=== PATIENT | female | born 1955 | race Caucasian/White ===

== ENCOUNTER 2020-06-26 08:21 | Outpatient (RCR) | payer MEDICARE, SELFPAY ==
[2020-06-26] MEDS: COVID-19 VACC, MRNA(PFIZER)/PF 30 MCG/0.3 ML SYRINGE IM (14:36)
[2020-07-17] MEDS: COVID-19 VACC, MRNA(PFIZER)/PF 30 MCG/0.3 ML SYRINGE IM (14:27)
== END 2020-09-23 23:59 ==
LOC: IMMUN 08:21
PROVIDERS: PCP Family Medicine; Referring Provider Family Medicine; Visit Provider Family Medicine
DX: Z23 Encounter for immunization (principal)
CPT/HCPCS: 0001A; 0002A; 91300

== ENCOUNTER → 2020-11-05 15:48 | Outpatient (CLI) | payer MEDICARE, SELFPAY ==
[2020-11-05 17:34] LABS: Anion Gap 8 (5-15); BUN 14 mg/dL (7-18); BUN/Creat Ratio 12.4 RATIO (10-20); Calcium,Total 9.2 mg/dL (8.5-10.1); Chloride 107 mmol/L (98-107); Creatinine, Serum 1.13 mg/dL (0.55-1.02); EST Glomerular Filtration Rate 51 mL/min (>60); Est Glom Filt Rate - Afr Amer 62 mL/min (>60); Glucose 107 mg/dL (74-106); Potassium 4.4 mmol/L (3.5-5.1); Sodium Level 138 mmol/L (136-145)
== END ==
PROVIDERS: PCP Family Medicine; Referring Provider Nurse Practitioner Family; Visit Provider Nurse Practitioner Family
DX: N18.2 Chronic kidney disease, stage 2 (mild) (principal); Z79.899 Other long term (current) drug therapy
CPT/HCPCS: 36415; 80048

== ENCOUNTER → 2021-02-10 14:12 | Outpatient (CLI) | payer MEDICARE, SELFPAY ==
[2021-02-10 16:03] LABS: Anion Gap 7 (5-15); BUN 17 mg/dL (7-18); BUN/Creat Ratio 14.8 RATIO (10-20); Calcium,Total 9.3 mg/dL (8.5-10.1); Chloride 104 mmol/L (98-107); Creatinine, Serum 1.15 mg/dL (0.55-1.02); EST Glomerular Filtration Rate 50 mL/min (>60); Est Glom Filt Rate - Afr Amer 61 mL/min (>60); Glucose 122 mg/dL (74-106); Potassium 4.1 mmol/L (3.5-5.1); Sodium Level 138 mmol/L (136-145)
== END ==
PROVIDERS: PCP Family Medicine; Referring Provider Nurse Practitioner Family; Visit Provider Nurse Practitioner Family
DX: E87.5 Hyperkalemia (principal); N18.2 Chronic kidney disease, stage 2 (mild); Z79.899 Other long term (current) drug therapy
CPT/HCPCS: 36415; 80048

== ENCOUNTER → 2021-03-16 14:33 | Outpatient (CLI) | payer MEDICARE, SELFPAY ==
[2021-03-16 15:49] LABS: Anion Gap 9 (5-15); BUN 10 mg/dL (7-18); Calcium,Total 9.2 mg/dL (8.5-10.1); Chloride 107 mmol/L (98-107); EST Glomerular Filtration Rate 59 mL/min (>60); Est Glom Filt Rate - Afr Amer 72 mL/min (>60); Glucose 106 mg/dL (74-106); Potassium 4.2 mmol/L (3.5-5.1); Sodium Level 139 mmol/L (136-145)
== END ==
PROVIDERS: PCP Family Medicine; Referring Provider Nurse Practitioner Family; Visit Provider Nurse Practitioner Family
DX: N18.2 Chronic kidney disease, stage 2 (mild) (principal); E87.5 Hyperkalemia; Z79.899 Other long term (current) drug therapy
CPT/HCPCS: 36415; 80048

== ENCOUNTER 2021-05-28 08:57 | Day surgery (SDC) | payer MEDICARE, SELFPAY ==
--- NOTE | 2021-05-28 | EMB_PTH ---
PATIENT: DELANEY STRICKLAND LOC: [facility] – [place], [place] U#:[id number] AGE/SX: 65/F ROOM: RE05/28/[address]: Dr. Digna Velázquez, MDDOB: 1955 BED: DIS: 05/28/2021 SPEC #: [id number] RECD: 05/28/21 12:12 STATUS: KATARIAN TIM #: [id number] SUE: 05/28/21 00:[address]: Digna Velázquez DEPT: SURGICAL PATHOLOGY RECD BY: Jim Brunner ENTERED: 05/28/21 14:05 SP TYPE: ENDOM BX/C HARJIT DR: Dr. Jake Roberts MD Tissues: Endometrium, NOS Procedures: Surgery Specimen Level IV HEADER OPERATION: Hysteroscopy, dilation and curettage, Mirena IUD insertion PRE-OP DIAGNOSIS: Complex endometrial hyperplasia without atypia TISSUE SUBMITTED: Endometrial curettings MICROSCOPIC DIAGNOSIS Endometrial curettings: Atypical complex endometrial hyperplasia. See comment. LUCIANO:rachelle 06/05/2021 COMMENT The specimen is sent to [facility] for expert opinion, reviewed by Dr. Cole and the above diagnosis is rendered. The complete report is viewable in the patient's EMR. Case has been reviewed in consultation with Dr. De La Torre who concurs with the above diagnosis. IDC:AM MICROSCOPIC DESCRIPTION Slides are reviewed. GROSS DESCRIPTION Received in fixative is one container labeled with the patient's name and designated endometrial curettings. The specimen consists of multiple irregular fragments of squires-pink soft tissue mixed with mucoid tissue that in aggregate measure 3 x 2.5 x 0.3 cm. The specimen is totally submitted in one cassette. / Maryellen 05/28/2021 TC:5 CPT: 79432
[2021-05-28] MEDS: Lactated Ringers 1,000 ML 15 ML IV (09:10)
[2021-05-28 09:30] LABS: Hematocrit 36.7 % (37-47); Mean Corp Hgb Conc 32.7 g/dL (32-36); Mean Corpuscular Hgb 27.8 pg (27.0-32.0); Mean Platelet Vol. 10.6 fl (6.2-12.0); Platelet Count 232 K/mm3 (150-450); RBC Distribution Width CV 14.5 % (11.6-14.6); RBC Distribution Width SD 44.5 fl (35.1-43.9); Red Blood Count 4.32 M/mm3 (4.2-5.4); White Blood Count 8.6 K/mm3 (4.4-11.0)
[2021-05-28 09:32] VITALS: BP 137/79; PULSE 65; RESP 16; TEMP 36.6; O2SAT 97; BMI 50.3
[2021-05-28 09:52] LABS: Anion Gap 8 (5-15); BUN 17 mg/dL (7-18); BUN/Creat Ratio 14.8 RATIO (10-20); Chloride 105 mmol/L (98-107); Creatinine, Serum 1.15 mg/dL (0.55-1.02); EST Glomerular Filtration Rate 50 mL/min (>60); Est Glom Filt Rate - Afr Amer 61 mL/min (>60); Estimated Creatinine Clearance 40.34 ml/min; Glucose 166 mg/dL (74-106); Potassium 4.2 mmol/L (3.5-5.1); Sodium Level 138 mmol/L (136-145)
--- NOTE | 2021-05-28 10:38 | PCM.PN.BLA ---
Progress Note I have re-examined the patient. There are no clinical changes since date of exam.
--- NOTE | 2021-05-28 11:00 | PCM.OPRPT ---
Report of Operation Date of Procedure: 05/28/21 Pre-Operative Diagnosis: complex endometrial hyperplasia w/o atypia Post-Operative Diagnosis: same Surgery/Procedure Performed:: Hysteroscopy, D&C, Insertion Mirena IUD Description of Surgical Findings:: uterus sounded to 10cm, anteverted. Thickened endometrium noted. Moderate amount of endometrial tissue present. Mirena IUD placed w/o difficulty. IUD strings cut to 2.5cm from OS. Surgeon: Digna Velázquez Type of Anesthesia: MAC Specimen's removed: Endometrial curettings Drains: none Estimated Blood Loss (mL): <5cc Fluids Replaced: 250 Description of Procedure: Informed consent was obtained the patient was taken the operating room she was placed in supine position. She was given anesthesia. She was then placed in the [facility] an acute care hospital where she was prepped and draped in the normal sterile fashion. At this time the weighted speculum was placed in the posterior fornix of vagina. Single-tooth tenaculum was used to gently grasp the anterior lip the cervix. At this time the uterine cavity was sounded to approximately 10 cm. Gentle dilatation was performed once adequate dilatation of the cervix was achieved the hysteroscope using normal saline as a distention medium was placed. Tubal ostia visualized, thickened endometrium. This time hysteroscopy was complete. Sharp curettage performed- moderate amount of tissue collected. Tissue will be sent to pathology for evaluation. MIRENA IUD placed at uterine fundus without difficulty. strings cut to 2.5cm from os. Tenaculum removed. Good hemostasis. Instrument, lap count correct x 2. Vaginal Sweep was negative. Grafts/Implants Used: MIRENA IUD Procedure Start Time: 10:55 Procedure Stop Time: 10:59 Complications none Admit VTE Documentation VTE Present on Admission: Yes VTE Mechan Device Prophylaxis: SCD's Reason prophylaxis not ordered:: Procedure Not Indicated
--- NOTE | 2021-05-28 11:04 | EX.PCM.DISCH ---
Discharge Instructions Procedure D&C Diet Discharge Diet: No restrictions Activity May resume sexual activity in: 1 week Dressing / Incision Call your doctor if you observe: Fever of 101 or Higher, Inability to urinate, Using more than 1 pad per hour and Uncontrolled pain Follow Up Care Please Follow Up With: Digna Velázquez MD When: 1-2 weeks post OP if you need an appointment please call [phone] Test Results: Test results from this visit will be discussed in further detail at your follow-up appointment, if applicable. Discharge Plan Admission Attending Provider: Digna Velázquez Primary Care Provider: Jake Roberts Discharge Orders/Prescriptions Prescriptions: No Action acetaminophen 325 mg capsule 650 mg PO Q6H PRN (Reason: Pain) RF: 0 glucosamine 500 fa-bntbphoqz-dcvjgyca comp 400 mg-D3 667 unit-C-Mn cap 500-400-667 mg-mg-unit capsule 1 cap PO TID RF: 0 spironolactone 25 mg tablet 50 mg PO DAILY RF: 0 magnesium oxide 400 mg (241.3 mg magnesium) tablet 400 mg PO DAILY Qty: 90 RF: 3 metoprolol tartrate 25 mg tablet 25 mg PO BID Qty: 180 RF: 3 atorvastatin 40 MG tablet 40 mg PO QHS RF: 0 aspirin 81 MG tablet,chewable 81 mg PO DAILY@0800 RF: 0 flecainide 50 mg tablet 50 mg PO Q12H Qty: 180 RF: 3 Disposition Discharge Orders: Discharge Patient (Routine); Ordered 05/28/21 Ordered By: Dr. Digna Velázquez
[2021-05-28 11:10] VITALS: BP 105/66; BP 137/79; PULSE 69; RESP 14; TEMP 36.6; O2SAT 94
[2021-05-28 11:15] VITALS: BP 107/71; BP 137/79; PULSE 70; RESP 16; O2SAT 94
[2021-05-28 11:20] VITALS: BP 111/89; BP 137/79; PULSE 69; RESP 16; O2SAT 93
[2021-05-28 11:29] VITALS: BP 103/80; BP 137/79; PULSE 64; RESP 16; TEMP 36.3; O2SAT 96
[2021-05-28 11:58] VITALS: BP 137/79; BP 150/72; PULSE 66; RESP 16; TEMP 35.9; O2SAT 94
== END 2021-05-28 23:59 | disposition home or self-care (01) ==
LOC: SDC 08:59 → AC 09:00
PROVIDERS: PCP Family Medicine; Referring Provider Obstetrics & Gynecology; Visit Provider Obstetrics & Gynecology
PROC: 0UDB8ZZ Extraction of Endometrium, Via Natural or Artificial Opening Endoscopic (ICD-10-PCS; CPT 58558; principal; 2021-05-28 10:20)
DX: N85.01 Benign endometrial hyperplasia (principal); I48.0 Paroxysmal atrial fibrillation; Z68.43 Body mass index [BMI] 50.0-59.9, adult; N18.2 Chronic kidney disease, stage 2 (mild); I12.9 Hypertensive chronic kidney disease with stage 1 through stage 4 chronic kidney disease, or unspecified chronic kidney disease; G47.33 Obstructive sleep apnea (adult) (pediatric); Z99.89 Dependence on other enabling machines and devices; E78.2 Mixed hyperlipidemia; E66.9 Obesity, unspecified
CPT/HCPCS: 58300; 58558; 00952; 80048; 85027; 88305; J7120; J2405